=== PATIENT | male | born 1965 | race Caucasian/White ===

== ENCOUNTER 2017-05-18 04:13 | Observation (INO) | payer BC ==
[~2017-05-18] VITALS: Ht 167.6 cm; Wt 72.8 kg
[2017-05-18] VITALS (31 sets, daily range): BP systolic 116–229; BP diastolic 73–123; PULSE 62–78; RESP 9–18; TEMP 97.8–98.5; O2SAT 95–100
[~2017-05-18 04:13] MED LIST: AMLO10 PO; CLON0.2T PO; LISI10TA PO; MOBI15TA PO; ROBA750T PO
[2017-05-18] MEDS ORDERED: ONDANSETRON HCL 4 MG/2 ML VIAL IVP ONE (05:00)
[2017-05-18] MEDS ORDERED: SODIUM CHLOR 0.9% 1000 ML INJ 1,000 ML IV SCH (05:00)
[2017-05-18] MEDS ORDERED: HYDROmorphone HCL PF 0.5 MG/0.5 ML SYRINGE IV PUSH ONE (05:00)
[2017-05-18] MEDS ORDERED: SODIUM CHLORIDE 0.9% FLUSH 10 ML FLUSH IV FLUSH PRN (05:00)
[2017-05-18] MEDS: NITROGLYCERIN 0.4 MG SL 25 TABS/BTL SL PRN ×3 (05:05→05:15)
--- NOTE | 2017-05-18 05:08 | PD ---
HPI Chief Complaint: GI Complaint Time Seen by Provider: 05:00 Travel History International Travel<30 days: No Contact w/Intl Traveler<30days: No Traveled to known affect area: No History of Present Illness HPI 52-year-old male presents to the emergency department for complaint of elevated blood pressure and 7/10 pain to the left upper quadrant and epigastric region 4 days. Symptoms are worsened over the last several hours. Patient states that he has been missing some of his blood pressure medication which includes clonidine. Patient's had nausea without vomiting. Patient denies any referred neck jaw back shoulder arm pain. Patient does smoke cigarettes. Patient is not diabetic. Patient denies chest pain. Patient is unable to identify exacerbating or alleviating factors. PFSH Past Medical History Narrative Medical Anemia gouty arthritis PVCs hypertension dyslipidemia ulcer cellulitis with skin grafts tobacco use alcohol use; nursing notes reviewed Anemia: Yes Arthritis: Yes Asthma: No Blood Disorders: No Heart Rhythm Problems: Yes (hx of PVC's and increased heart rate) Cancer: No Cardiovascular Problems: Yes High Cholesterol: Yes Congestive Heart Failure: No COPD: No Diabetes: No Diminished Hearing: No Endocrine: No Gastrointestinal Disorders: No GERD: No Gout: Yes Genitourinary: No Headaches: No Hiatal Hernia: No Hypertension: Yes Immune Disorder: No Implanted Vascular Access Dvce: No Kidney Stones: No Musculoskeletal: Yes (FX LEFT SHOULDER 1.5 YRS AGO, infection in lleg ) Neurologic: No Psychiatric: No Reproductive: No Respiratory: No Migraines: No Renal Failure: No Seizures: No Sleep Apnea: No Thyroid Disease: No Ulcer: Yes ?: Not Past Surgical History Abdominal Surgery: No Cardiac Surgery: No Ear Surgery: No Eye Surgery: No Genitourinary Surgery: No Oral Surgery: No Thoracic Surgery: No Other Surgery: Yes (SKIN GRAFTS r/t FITZGERALD 2nd and 3rd degree to left arm and back) Social History Alcohol Use: Yes (3 beers daily) Tobacco Use: Yes (1 PPD) Substance Use: No Allergies-Medications (Allergen,Severity, Reaction): Coded Allergies: No Known Allergies (Verified Adverse Reaction, Unknown, 05/18/17) Reported Meds & Prescriptions Reported Meds & Active Scripts Active Reported Lisinopril-Hctz 10-12.5 Mg Tab 2 Tab PO DAILY Norvasc (Amlodipine Besylate) 10 Mg Tab 10 Mg PO DAILY Clonidine (Clonidine HCl) Unknown Strength Tab Unknown Dose PO DAILY Review of Systems Except as stated in HPI: all other systems reviewed are Neg General / Constitutional: No: Fever, Chills Eyes: No: Visual changes HENT: No: Headaches, Neck Pain Cardiovascular: No: Chest Pain or Discomfort Respiratory: No: Shortness of Breath Gastrointestinal: Positive: Nausea, Abdominal Pain, No: Vomiting, Diarrhea Genitourinary: No: Flank Pain Musculoskeletal: No: Myalgias, Arthralgias Skin: No Rash Neurologic: No: Weakness Psychiatric: No: Anxiety Hematologic/Lymphatic: No: Easy Bruising Physical Exam Narrative GENERAL: Well-developed well-nourished male in no acute distress no respiratory distress SKIN: Warm and dry. HEAD: Normocephalic. EYES: No scleral icterus. No injection or drainage. NECK: Supple, trachea midline. No JVD or lymphadenopathy. CARDIOVASCULAR: Regular rate and rhythm without murmurs, gallops, or rubs. RESPIRATORY: Breath sounds equal bilaterally. No accessory muscle use. GASTROINTESTINAL: Abdomen soft, non-tender, nondistended. No palpable pulsatile mass. MUSCULOSKELETAL: No cyanosis, or edema. BACK: Nontender without obvious deformity. No CVA tenderness. Data Data Last Documented VS Vital Signs Date Time Temp Pulse Resp B/P (MAP) Pulse Ox O2 Delivery O2 Flow Rate FiO2 05/18/17 07:29 67 16 173/94 (120) 100 Nasal Cannula 2.00 05/18/17 04:20 97.8 Orders Orders Electrocardiogram (05/18/17 ) Complete Blood Count With Diff (05/18/17 05:00) Comprehensive Metabolic Panel (05/18/17 05:00) Lipase (05/18/17 05:00) Prothrombin Time / Inr (Pt) (05/18/17 05:00) Act Partial Throm Time (Ptt) (05/18/17 05:00) Urinalysis - C+S If Indicated (05/18/17 05:00) Ct Abd/Pel W Iv Contrast(Rout) (05/18/17 05:00) Iv Access Insert/Monitor (05/18/17 05:00) Ecg Monitoring (05/18/17 05:00) Oximetry (05/18/17 05:00) Ondansetron Inj (Zofran Inj) (05/18/17 05:00) Sodium Chloride 0.9% Flush (Ns Flush) (05/18/17 05:00) Electrocardiogram (05/18/17 05:00) Chest, Single Ap (05/18/17 05:00) Troponin I (05/18/17 05:00) Ckmb (Isoenzyme) Profile (05/18/17 05:00) Nitroglycerin Sl (Nitrostat Sl) (05/18/17 05:00) Hydromorphone Pf Inj (Dilaudid Pf Inj) (05/18/17 05:00) Sodium Chlor 0.9% 1000 Ml Inj (Ns 1000 M (05/18/17 05:00) Type And Screen (05/18/17 05:00) Alcohol (Ethanol) (05/18/17 05:00) Magnesium (Mg) (05/18/17 05:00) Aspirin Chew (Aspirin Chew) (05/18/17 05:30) Aspirin Chew (Aspirin Chew) (05/18/17 05:20) CKMB (05/18/17 05:00) CKMB% (05/18/17 05:00) Iohexol 350 Inj (Omnipaque 350 Inj) (05/18/17 06:15) Nitroglycerin 2% Oint (Nitroglycerin 2% (05/18/17 06:45) Labetalol Inj (Trandate Inj) (05/18/17 07:00) Labetalol Inj (Trandate Inj) (05/18/17 07:00) Hydromorphone Pf Inj (Dilaudid Pf Inj) (05/18/17 07:15) Admit Order (Ed Use Only) (05/18/17 ) Vital Signs (Adult) Q4H (05/18/17 07:33) Diet Npo (05/18/17 Breakfast) Activity Bed Rest (05/18/17 07:33) Notify Dr: Other (05/18/17 07:33) Labs Laboratory Tests Test 05/18/17 05:00 05/18/17 07:30 White Blood Count 8.7 TH/MM3 Red Blood Count 4.72 MIL/MM3 Hemoglobin 14.7 GM/DL Hematocrit 44.5 % Mean Corpuscular Volume 94.2 FL Mean Corpuscular Hemoglobin 31.1 PG Mean Corpuscular Hemoglobin Concent 33.0 % Red Cell Distribution Width 12.7 % Platelet Count 289 TH/MM3 Mean Platelet Volume 9.8 FL Neutrophils (%) (Auto) 55.5 % Lymphocytes (%) (Auto) 29.8 % Monocytes (%) (Auto) 8.2 % Eosinophils (%) (Auto) 3.0 % Basophils (%) (Auto) 3.5 % Neutrophils # (Auto) 4.8 TH/MM3 Lymphocytes # (Auto) 2.6 TH/MM3 Monocytes # (Auto) 0.7 TH/MM3 Eosinophils # (Auto) 0.3 TH/MM3 Basophils # (Auto) 0.3 TH/MM3 CBC Comment DIFF FINAL Differential Comment Prothrombin Time 11.3 SEC Prothromb Time International Ratio 1.0 RATIO Activated Partial Thromboplast Time 28.5 SEC Blood Urea Nitrogen 15 MG/DL Creatinine 1.10 MG/DL Random Glucose 95 MG/DL Total Protein 7.9 GM/DL Albumin 4.0 GM/DL Calcium Level 8.4 MG/DL Magnesium Level 2.4 MG/DL Alkaline Phosphatase 96 U/L Aspartate Amino Transf (AST/SGOT) 22 U/L Alanine Aminotransferase (ALT/SGPT) 37 U/L Total Bilirubin 0.6 MG/DL Sodium Level 134 MEQ/L Potassium Level 3.4 MEQ/L Chloride Level 98 MEQ/L Carbon Dioxide Level 27.8 MEQ/L Anion Gap 8 MEQ/L Estimat Glomerular Filtration Rate 70 ML/MIN Total Creatine Kinase 107 U/L Creatine Kinase MB 1.7 NG/ML Troponin I LESS THAN 0.02 NG/ML Lipase 77 U/L Ethyl Alcohol Level LESS THAN 3 MG/DL MDM Medical Decision Making Medical Screen Exam Complete: Yes Emergency Medical Condition: Yes Medical Record Reviewed: Yes Interpretation(s) EKG normal sinus rhythm rate [address] elevation or injury pattern or ectopy noted Last Impressions Chest X-Ray 05/18/17 0500 Signed Impressions: Service Date/Time: Thursday, May 18, 2017 05:29 - CONCLUSION: 1. No acute cardiopulmonary disease. Lane Montiel MD Abdomen/Pelvis CT 05/18/17 0500 Signed Impressions: Service Date/Time: Thursday, May 18, 2017 06:08 - CONCLUSION: 1. No evidence of acute abdominal or pelvic process. No masses are identified. 2. Constipation Lane Montiel MD CBC & BMP Diagram 05/18/17 05:00 Total Protein 7.9, Albumin 4.0, Calcium Level 8.4 L, Magnesium Level 2.4, Alkaline Phosphatase 96, Aspartate Amino Transf (AST/SGOT) 22, Alanine Aminotransferase (ALT/SGPT) 37, Total Bilirubin 0.6 Vital Signs Date Time Temp Pulse Resp B/P (MAP) Pulse Ox O2 Delivery O2 Flow Rate FiO2 05/18/17 05:41 75 16 165/95 (118) 97 Nasal Cannula 2.00 05/18/17 05:35 74 178/106 (130) 05/18/17 05:30 75 192/104 (133) 05/18/17 05:20 72 165/95 (118) 05/18/17 05:15 74 172/102 (125) 05/18/17 05:10 74 180/102 (128) 05/18/17 05:05 77 207/117 (147) 05/18/17 04:45 78 229/110 (149) 05/18/17 04:25 78 16 229/110 (149) 99 05/18/17 04:20 97.8 71 18 227/123 (157) 99 troponin I: less than 0.02, not elevated; CK: 107, not elevated Differential Diagnosis Abdominal pain gastritis pancreatitis biliary colic atypical chest pain ACS myocardial infarction aortic dissection abdominal aortic aneurysm hypertensive urgency hypertensive crisis Narrative Course Patient placed on campus monitor with continuous pulse oximetry IV access obtained specimens collected and sent for resulting patient administered sublingual nitroglycerin times one for 7/10 epigastric pain to repeat every every 5 minutes 2 also administered aspirin 162 mg and EKG ordered to be performed @ 0730 173/94 after NTG, labetalol, dilaudid; patient with decreased pain and improving BP. Patient discussed with and admitted to [facility] service for ongoing BP management to ICU Physician Communication Physician Communication discussed with Dr Oropeza for [facility] --->admit to ICU Diagnosis Primary Impression: Uncontrolled hypertension Additional Impression: Abdominal pain of unknown etiology Admitting Information Admitting Physician Requests: Admit Lora Patel MD May 18, 2017 05:08
[2017-05-18 05:20] LABS: AUTOMATED NEUTROPHIL # 4.8 TH/MM3 (1.8-7.7); BASOPHIL # 0.3 TH/MM3 (0-0.2); BASOPHIL % 3.5 % (0.0-2.0); EOSINOPHIL # 0.3 TH/MM3 (0-0.4); HEMATOCRIT 44.5 % (39.0-51.0); HEMO FLAGS DIFF FINAL; LYMPH % 29.8 % (9.0-44.0); LYMPHOCYTE # 2.6 TH/MM3 (1.0-4.8); MEAN CELL VOLUME 94.2 FL (80.0-100.0); MEAN CORPUSCULAR HEMOGLOBIN 31.1 PG (27.0-34.0); MONO % 8.2 % (0.0-8.0); NEUT % 55.5 % (16.0-70.0); PLATELET COUNT 289 TH/MM3 (150-450); RED BLOOD COUNT 4.72 MIL/MM3 (4.50-5.90); RED CELL DISTRIBUTION WIDTH 12.7 % (11.6-17.2); WHITE BLOOD COUNT 8.7 TH/MM3 (4.0-11.0)
[2017-05-18] MEDS ORDERED: ASPIRIN 81 MG CHEW TAB ONE (05:20)
[2017-05-18 05:26] LABS: CHLORIDE 98 MEQ/L (98-107); POTASSIUM 3.4 MEQ/L (3.5-5.1); SODIUM (NA) 134 MEQ/L (136-145)
[2017-05-18 05:30] LABS: ANION GAP 8 MEQ/L (5-15); APTT (PATIENT) 28.5 SEC (24.3-30.1); BICARBONATE 27.8 MEQ/L (21.0-32.0); BLOOD UREA NITROGEN 15 MG/DL (7-18); MAGNESIUM 2.4 MG/DL (1.5-2.5); PROTHROMBIN TIME - PATIENT 11.3 SEC (9.8-11.6)
[2017-05-18] MEDS ORDERED: ASPIRIN 81 MG CHEW TAB CHEW ONE (05:30)
[2017-05-18 05:33] LABS: ALT (GPT) 37 U/L (12-78); AST (GOT) 22 U/L (15-37); GLOMERULAR FILTRATION RATE 70 ML/MIN (>89)
[2017-05-18 05:34] LABS: TOTAL BILIRUBIN ADULT 0.6 MG/DL (0.2-1.0)
[2017-05-18 05:36] LABS: ALKALINE PHOSPHATASE 96 U/L (45-117); CREATINE KINASE 107 U/L (39-308)
[2017-05-18 05:43] LABS: ALCOHOL LESS THAN 3 MG/DL (0-5)
[2017-05-18 05:59] LABS: CKMB 1.7 NG/ML (0.5-3.6)
[2017-05-18] MEDS ORDERED: IOHEXOL 350 MG/ML 10 ML VIAL (for RAD DIAG) IVCONTRAST ONE (06:15)
--- NOTE | 2017-05-18 06:27 | RADRPT ---
EXAM DATE/TIME: 05/18/2017 05:29 [facility] COMPARISON: No previous studies available for comparison. INDICATIONS : Chest pain. Syncope. MEDICAL HISTORY : None. SURGICAL HISTORY : None. ENCOUNTER: Initial ACUITY: 1 day PAIN SCORE: 0/10 LOCATION: Bilateral chest FINDINGS: A single view of the chest demonstrates the lungs to be symmetrically aerated without evidence of mas s, infiltrate or effusion. The cardiomediastinal contours are unremarkable. Osseous structures are intact. CONCLUSION: 1. No acute cardiopulmonary disease. Lane Montiel MD on May 18, 2017 at 6:25 Board Certified Radiologist. This report was verified electronically.
--- NOTE | 2017-05-18 06:31 | RADRPT ---
EXAM DATE/TIME: 05/18/2017 06:08 [facility] COMPARISON: MRI ABDOMEN W & W/O CONTRAST, June 12, 2016, 12:14. CT ABDOMEN & PELVIS W CONTRAST, June 11, 2016, 4:50. INDICATIONS : Left upper quadrant pain. IV CONTRAST: 85 cc Omnipaque 350 (iohexol) IV ORAL CONTRAST: No oral contrast ingested. RADIATION DOSE: 9.27 CTDIvol (mGy) MEDICAL HISTORY : Hypertension. Cardiovascular disease Liver lesions. SURGICAL HISTORY : None. ENCOUNTER: Initial ACUITY: 4 - 6 days PAIN SCALE: 4/10 LOCATION: Left upper quadrant TECHNIQUE: Volumetric scanning of the abdomen and pelvis was performed. Using automated exposure control and ad justment of the mA and/or kV according to patient size, radiation dose was kept as low as reasonably achievable to obtain optimal diagnostic quality images. DICOM format image data is available electro nically for review and comparison. FINDINGS: There is subsegmental atelectasis in the both bases. The liver and spleen are free of focal defects with the exception of a 10 mm hemangioma in the right lobe. The gallbladder and pancreas demonstrate no abnormality. The adrenal glands are normal. The kidneys demonstrate no evidence of solid renal mas s or hydronephrosis. No free fluid or abdominal masses are identified. No para-aortic adenopathy is s een. Examination of the pelvis demonstrates no evidence of free fluid or pelvic mass. No abnormally enlarg ed inguinal or retroperitoneal lymph nodes are present. The bladder is unremarkable. There is a moder ate amount of fecal material throughout the colon. CONCLUSION: 1. No evidence of acute abdominal or pelvic process. No masses are identified. 2. Constipation Lane Montiel MD on May 18, 2017 at 6:26 Board Certified Radiologist. This report was verified electronically.
[2017-05-18] MEDS ORDERED: LABETALOL HCL 100 MG/20 ML VIAL IV PUSH ONE ×3 (06:45→07:00)
[2017-05-18] MEDS ORDERED: NITROGLYCERIN 2% OINT 1 GM PACKET TOPICAL ONE (06:45)
[2017-05-18] MEDS ORDERED: HYDROmorphone HCL PF 1 MG/ML VIAL IV PUSH ONE (07:15)
[2017-05-18 07:35] LABS: BLOOD, URINE NEG (NEG); GLUCOSE,URINE NEG (NEG); KETONE, URINE NEG (NEG); NITRITE,URINE NEG (NEG); PH, URINE 6.5 (5.0-8.5)
[2017-05-18 07:41] LABS: METHOD OF COLLECTION CLEAN CATCH; URINE COLOR YELLOW (YELLW/STRAW)
[2017-05-18 07:42] LABS: COMMENT (UR) CULT NOT INDICATED; CULTURE IF INDICATED CULT NOT INDICATED; RBC, URINE 0-3 /hpf (0-3); SQUAMOUS EPITHELIAL CELL URINE 0-5 /hpf (0-5)
[2017-05-18] MEDS ORDERED: NIFEdipine 10 MG CAP PO SCH (08:15)
[2017-05-18] MEDS ORDERED: ASPIRIN 81 MG CHEW TAB CHEW SCH (09:00)
[2017-05-18] MEDS ORDERED: POLYETHYLENE GLYCOL 17 GM PKG PO SCH (10:00)
[2017-05-18] MEDS ORDERED: SOD PHOSPHATE/SOD BIPHOSPHATE (ADULT) ENEMA 133ML RECTAL ONE (10:00)
[2017-05-18] MEDS ORDERED: PROMETHAZINE INJ 25 MG/ML VIAL IM ONE (10:00)
[2017-05-18] MEDS ORDERED: NIFEdipine 10 MG CAP PO ONE (10:30)
[2017-05-18] MEDS ORDERED: MINERAL OIL LIQUID 30 ML CUP PO ONE (10:30)
[2017-05-18] MEDS ORDERED: FAMOTIDINE 20 MG/2 ML VIAL IV PUSH SCH (11:00)
--- NOTE | 2017-05-18 11:10 | HHI.HP ---
[facility] Israel Ni[facility], DO Admission Diagnosis uncontrolled HTN, abdominal pain Diagnoses: Chief Complaint: abd pain Travel History International Travel<30 Days: No Contact w/Intl Traveler <30 Da: No Traveled to Known Affected Are: No History of Present Illness 52-year-old white male being admitted for hypertensive emergency Patient was in his usual state of health until about 2 nights ago when he was on the job began experiencing a sudden onset of abdominal pain that was stabbing mainly located on his right side. This is associated with feeling a little lightheaded, dizzy, nauseated and mild chest tightness. Denies any vomiting. 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 The pain subsided as he went off the shift and recurred again when he went on the shift in next night to a higher intensity up to a 8/ 10. He took some Aleve to no avail. He reports being noncompliant with his medications of hypertension, says he just forgets. States that now all the symptoms except for his abdominal pain have resolved. Review of Systems Except as stated in HPI: all other systems reviewed are Neg Past Family Social History Past Medical History Anemia, doubt arthritis, hypertension, hyperlipidemia, cellulitis Past Surgical History Left shoulder surgery Allergies: Coded Allergies: No Known Allergies (Verified Allergy, Unknown, 05/18/17) Family History None per patient Social History Pack per day for over 20 years, does drink 3 beers daily Physical Exam Vital Signs Vital Signs Date Time Temp Pulse Resp B/P (MAP) Pulse Ox O2 Delivery O2 Flow Rate FiO2 05/18/17 10:00 70 12 150/89 (109) 05/18/17 10:00 98.5 70 12 150/89 (109) 05/18/17 09:30 70 11 159/96 (117) 95 05/18/17 09:00 69 05/18/17 09:00 98.0 05/18/17 09:00 69 156/97 (116) 05/18/17 08:55 05/18/17 08:22 67 16 135/85 (102) 97 Room Air 05/18/17 07:52 66 16 154/95 (114) 97 Room Air 05/18/17 07:40 16 97 Room Air 05/18/17 07:34 16 05/18/17 07:32 66 16 174/95 (121) 100 Nasal Cannula 2.00 05/18/17 07:30 16 05/18/17 07:29 67 16 173/94 (120) 100 Nasal Cannula 2.00 05/18/17 07:18 67 16 179/104 (129) 100 Nasal Cannula 2.00 05/18/17 07:10 77 16 206/113 (144) 100 Room Air 05/18/17 06:54 69 18 184/103 (130) 05/18/17 06:50 73 18 152/108 (123) 100 Nasal Cannula 2.00 05/18/17 06:41 78 16 165/104 (124) 98 Nasal Cannula 2.00 05/18/17 05:41 75 16 165/95 (118) 97 Nasal Cannula 2.00 05/18/17 05:35 74 178/106 (130) 05/18/17 05:30 75 192/104 (133) 05/18/17 05:20 72 165/95 (118) 05/18/17 05:15 74 172/102 (125) 05/18/17 05:10 74 180/102 (128) 05/18/17 05:05 77 207/117 (147) 05/18/17 04:45 78 229/110 (149) 05/18/17 04:25 78 16 229/110 (149) 99 05/18/17 04:20 97.8 71 18 227/123 (157) 99 Physical Exam VS: Afebrile GENERAL: Well-nourished middle-aged white male, no acute distress, awake SKIN: Warm and dry. EYES: Pupils equal and round. No scleral icterus. No injection or drainage. ENT: No nasal bleeding or discharge. Mucous membranes pink and moist. CARDIOVASCULAR: Regular rate and rhythm. no murmurs RESPIRATORY: No accessory muscle use. Clear to auscultation. Breath sounds equal bilaterally. GASTROINTESTINAL: Abdomen soft, has tenderness appreciated on deep palpation looking underneath the right subcostal margins, also on the left but to a lesser extent, mild discomfort on very deep palpation to remaining abdominal quadrants, decreased bowel sounds Extremities: No clubbing, cyanosis, or edema. No obvious deformities. MUSCULOSKELETAL: Extremities without clubbing, cyanosis, or edema. No obvious deformities. grossly intact ROM with 5/5 strength in upper and lower extremities proximally NEUROLOGICAL: Awake and alert. No obvious cranial nerve deficits. No facial droop nor slurred speech noted. PSYCHIATRIC: Appropriate mood and affect; insight and judgment normal. Laboratory Laboratory Tests Test 05/18/17 05:00 05/18/17 07:30 05/18/17 08:13 White Blood Count 8.7 Red Blood Count 4.72 Hemoglobin 14.7 Hematocrit 44.5 Mean Corpuscular Volume 94.2 Mean Corpuscular Hemoglobin 31.1 Mean Corpuscular Hemoglobin Concent 33.0 Red Cell Distribution Width 12.7 Platelet Count 289 Mean Platelet Volume 9.8 Neutrophils (%) (Auto) 55.5 Lymphocytes (%) (Auto) 29.8 Monocytes (%) (Auto) 8.2 Eosinophils (%) (Auto) 3.0 Basophils (%) (Auto) 3.5 Neutrophils # (Auto) 4.8 Lymphocytes # (Auto) 2.6 Monocytes # (Auto) 0.7 Eosinophils # (Auto) 0.3 Basophils # (Auto) 0.3 CBC Comment DIFF FINAL Differential Comment Prothrombin Time 11.3 Prothromb Time International Ratio 1.0 Activated Partial Thromboplast Time 28.5 Blood Urea Nitrogen 15 Creatinine 1.10 Random Glucose 95 Total Protein 7.9 Albumin 4.0 Calcium Level 8.4 Magnesium Level 2.4 Alkaline Phosphatase 96 Aspartate Amino Transf (AST/SGOT) 22 Alanine Aminotransferase (ALT/SGPT) 37 Total Bilirubin 0.6 Sodium Level 134 Potassium Level 3.4 Chloride Level 98 Carbon Dioxide Level 27.8 Anion Gap 8 Estimat Glomerular Filtration Rate 70 Total Creatine Kinase 107 Creatine Kinase MB 1.7 Troponin I LESS THAN 0.02 Lipase 77 Ethyl Alcohol Level LESS THAN 3 Urine Collection Type CLEAN CATCH Urine Color YELLOW Urine Turbidity CLEAR Urine pH 6.5 Urine Specific [place] 1.027 Urine Protein NEG Urine Glucose (UA) NEG Urine Ketones NEG Urine Occult Blood NEG Urine Nitrite NEG Urine Bilirubin NEG Urine Leukocyte Esterase NEG Urine RBC 0-3 Urine Squamous Epithelial Cells 0-5 Microscopic Urinalysis Comment CULT NOT INDICATED Urine Collection Time 07:30 Urine Opiates Screen NEG Urine Barbiturates Screen NEG Urine Amphetamines Screen NEG Urine Benzodiazepines Screen NEG Urine Cocaine Screen NEG Urine Cannabinoids Screen NEG Result Diagram: 05/18/17 05005/18/17 050 Imaging Last Impressions Chest X-Ray 05/18/17499 Signed Impressions: Service Date/Time: Thursday, May 18, 2017 05:29 - CONCLUSION: 1. No acute cardiopulmonary disease. Lane Montiel MD Abdomen/Pelvis CT 05/18/17 050 Signed Impressions: Service Date/Time: Thursday, May 18, 2017 06:08 - CONCLUSION: 1. No evidence of acute abdominal or pelvic process. No masses are identified. 2. Constipation Lane Montiel MD [place] VTE Risk Assessment Caprini VTE Risk Assessment: No/Low Risk (score <= 1) Caprini Risk Assessment Model Point Value = 1 Point Value = 2 Point Value = 3 Point Value = 5 Age 41-60 Minor surgery BMI > 25 kg/m2 Swollen legs Varicose veins or History of unexplained or recurrent spontaneous Oral contraceptives or hormone replacement Sepsis (< 1 month) Serious lung disease, including pneumonia (< 1 month) Abnormal pulmonary function Acute myocardial infarction Congestive heart failure (< 1 month) History of inflammatory bowel disease Medical patient at bed rest Age 61-74 Arthroscopic surgery Major open surgery (> 45 min) Laparoscopic surgery (> 45 min) Malignancy Confined to bed (> 72 hours) Immobilizing plaster cast Central venous access Age >= 75 History of VTE Family history of VTE Factor V Leiden Prothrombin [id number] Lupus anticoagulant Anticardiolipin antibodies Elevated serum homocysteine Heparin-induced thrombocytopenia Other congenital or acquired thrombophilia Stroke (< 1 month) Elective arthroplasty Hip, pelvis, or leg fracture Acute spinal cord injury (< 1 month) Prophylaxis Regimen Total Risk Factor Score Risk Level Prophylaxis Regimen 0-1 Low Early ambulation 2 Moderate Order ONE of the following: *Sequential Compression Device (SCD) *Heparin 5000 units SQ BID 3-4 Higher Order ONE of the following medications: *Heparin 5000 units SQ TID *Enoxaparin/Lovenox 40 mg SQ daily (WT < 150 kg, CrCl > 30 mL/min) *Enoxaparin/Lovenox 30 mg SQ daily (WT < 150 kg, CrCl > 10-29 mL/min) *Enoxaparin/Lovenox 30 mg SQ BID (WT < 150 kg, CrCl > 30 mL/min) AND/OR *Sequential Compression Device (SCD) 5 or more Highest Order ONE of the following medications: *Heparin 5000 units SQ TID (Preferred with Epidurals) *Enoxaparin/Lovenox 40 mg SQ daily (WT < 150 kg, CrCl > 30 mL/min) *Enoxaparin/Lovenox 30 mg SQ daily (WT < 150 kg, CrCl > 10-29 mL/min) *Enoxaparin/Lovenox 30 mg SQ BID (WT < 150 kg, CrCl > 30 mL/min) AND *Sequential Compression Device (SCD) Assessment and Plan Assessment and Plan Hypertensive emergency - admitting to ICU - Significantly improved since emergency room treatment, continue low-dose nifedipine and monitor blood pressure frequently - PRESS FEEDER symptoms have resolved - no need for drip at this time, urine drug screen ordered - Independently reviewed EKG shows sinus rhythm Abdominal pain - Possibly pleurisy versus constipation versus both - We'll give Toradol for pain while giving enemas to help relieve the constipation - miralax, mineral oil, phenergan for nausea - pepcid w/ po protonix - My independent review of the CT scan shows significant constipation diffusely Addendum: Patient's blood pressure had normalized and his symptoms of chest tightness nausea and arm tingling as well as lightheadedness completely resolved. He had been giving an enema with a resulting bowel movement that resulted in resolution of his abdominal pain. Nursing ambulate with him around the nursing station with no recurrence of his symptoms including chest pain. Patient has met maximal benefit from observation care and is clinically stable for discharge. Patient was counseled that we would be modifying his home hypertension regimen and that he would need to follow up with his primary care provider for ultimate fine-tuning of his BP meds. Chuckie Han MD May 18, 2017 11:10
[2017-05-18] MEDS ORDERED: PANTOPRAZOLE SOD 40 MG DELAYED RELEASE TAB PO SCH (12:00)
--- NOTE | 2017-05-18 12:56 | EKG ---
Date Performed: 05/18/2017 Time Performed: 05:20:50 PTAGE: 52 years EKG: Sinus rhythm NORMAL ECG PREVIOUS TRACING : 06/13/2016 04.16 Since previous tracing, no significant change. DOCTOR: Chang Briggs Interpretating Date/Time 05/18/2017 12:54:13
[2017-05-18] MEDS ORDERED: NIFEdipine 20 MG CAP PO SCH (14:00)
[2017-05-18] MEDS ORDERED: NIFE60TA58 PO (17:18)
--- NOTE | 2017-05-18 17:21 | HHI.DCPOC ---
Discharge Care Plan Diagnosis: (1) Constipation (2) Hypertensive emergency (3) Smoking greater than 10 pack years Additional Problems STOP SMOKING - it makes your hypertension worse! Goals to Promote Your Health * To prevent worsening of your condition and complications * To maintain your health at the optimal level Directions to Meet Your Goals Take your medications as prescribed Follow your dietary instruction Follow activity as directed Keep your appointments as scheduled Take your immunizations and boosters as scheduled If your symptoms worsen call your PCP, if no PCP go to Urgent Care Center or Emergency Room Smoking is Dangerous to Your Health. Avoid second hand smoke Call the 24-hour hour crisis hotline for domestic abuse at Chuckie Han MD May 18, 2017 17:21
[2017-05-18] MEDS ORDERED: MIRA3350 PO (17:22)
== END 2017-05-18 18:43 | disposition home or self-care (01) ==
LOC: PHED 04:13 → PHEDA 07:35 → INTOOBSV 07:35 → PHICU 09:04
PROVIDERS: ADMIT Hospitalist; ATTEND Hospitalist
DX: I16.1 Hypertensive emergency (principal); R10.12 Left upper quadrant pain; K59.00 Constipation, unspecified; R11.0 Nausea; R42 Dizziness and giddiness; R07.9 Chest pain, unspecified; R55 Syncope and collapse; I10 Essential (primary) hypertension; E78.00 Pure hypercholesterolemia, unspecified; M19.90 Unspecified osteoarthritis, unspecified site; F17.210 Nicotine dependence, cigarettes, uncomplicated; Z91.14 Patient's other noncompliance with medication regimen; Z79.899 Other long term (current) drug therapy
CPT/HCPCS: 71010; 74177; 80053; 80307; 81001; 82550; 82552; 83690; 83735; 84484; 85025; 85610; 85730; 86850; 86900; 86901; 93005; 96374; 96375; 99285; G0378; J1170; J2405; J2550; J7030; Q9967

== ENCOUNTER 2017-08-18 18:48 | Observation (INO) | payer SELFPAY ==
[~2017-08-18] VITALS: Ht 167.6 cm; Wt 72.5 kg
[~2017-08-18 18:48] MED LIST changes: -AMLO10 PO; -CLON0.2T PO; -LISI10TA PO; +MIRA3350 PO; -MOBI15TA PO; +NIFE60TA58 PO; -ROBA750T PO
[2017-08-18 19:08] VITALS: BP 123/66; PULSE 78; RESP 14; TEMP 98.5; O2SAT 97
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
[2017-08-18] MEDS ORDERED: SODIUM CHLORIDE 0.9% FLUSH 10 ML FLUSH IVF PRN (21:15)
[2017-08-18 21:36] LABS: BILIRUBIN, URINE NEG (NEG); BLOOD, URINE NEG (NEG); GLUCOSE,URINE NEG (NEG); KETONE, URINE NEG (NEG); NITRITE,URINE NEG (NEG); URINE LEUKOCYTE ESTERASE NEG (NEG)
[2017-08-18 21:44] LABS: CHLORIDE 99 MEQ/L (98-107); SODIUM (NA) 133 MEQ/L (136-145)
[2017-08-18 21:45] LABS: AUTOMATED NEUTROPHIL # 5.1 TH/MM3 (1.8-7.7); BASOPHIL # 0.2 TH/MM3 (0-0.2); BASOPHIL % 2.8 % (0.0-2.0); EOSINOPHIL # 0.3 TH/MM3 (0-0.4); EOSINOPHIL % 3.1 % (0.0-4.0); HEMATOCRIT 38.7 % (39.0-51.0); HEMOGLOBIN 13.4 GM/DL (13.0-17.0); LYMPH % 25.3 % (9.0-44.0); LYMPHOCYTE # 2.1 TH/MM3 (1.0-4.8); MEAN CORPUSCULAR HEMOGLOBIN 33.3 PG (27.0-34.0); MEAN CORPUSCULAR HGB CONC 34.6 % (32.0-36.0); MONO % 7.3 % (0.0-8.0); MONOCYTE # 0.6 TH/MM3 (0-0.9); NEUT % 61.5 % (16.0-70.0); PLATELET COUNT 267 TH/MM3 (150-450); RED BLOOD COUNT 4.03 MIL/MM3 (4.50-5.90); WHITE BLOOD COUNT 8.3 TH/MM3 (4.0-11.0)
[2017-08-18 21:47] LABS: CALCIUM 8.4 MG/DL (8.5-10.1)
[2017-08-18 21:48] LABS: ALBUMIN 3.2 GM/DL (3.4-5.0); BICARBONATE 28.1 MEQ/L (21.0-32.0); BLOOD UREA NITROGEN 9 MG/DL (7-18); GLUCOSE,RANDOM 89 MG/DL (74-106)
[2017-08-18 21:49] LABS: INTERNATIONAL NORMALIZED RATIO 1.1 RATIO; PROTHROMBIN TIME - PATIENT 11.1 SEC (9.8-11.6)
[2017-08-18 21:50] LABS: URINE COLOR YELLOW (YELLW/STRAW)
[2017-08-18 21:51] LABS: SQUAMOUS EPITHELIAL CELL URINE 0-5 /hpf (0-5)
[2017-08-18 21:51] LABS: ALT (GPT) 53 U/L (12-78); AST (GOT) 41 U/L (15-37); CREATININE 0.82 MG/DL (0.60-1.30); GLOMERULAR FILTRATION RATE 98 ML/MIN (>89)
[2017-08-18 21:52] LABS: TOTAL BILIRUBIN ADULT 0.2 MG/DL (0.2-1.0)
[2017-08-18 21:54] LABS: ALKALINE PHOSPHATASE 96 U/L (45-117)
--- NOTE | 2017-08-18 21:54 | RADRPT ---
EXAM DATE/TIME: 08/18/2017 21:36 [facility] COMPARISON: No previous studies available for comparison. INDICATIONS : Left facial numbness. Evaluate for cerebrovascular injury. RADIATION DOSE: 60.39 CTDIvol (mGy) MEDICAL HISTORY : Cardiovascular disease. SURGICAL HISTORY : None. ENCOUNTER: Initial ACUITY: 2 days PAIN SCALE: 2/10 LOCATION: Left facial TECHNIQUE: Multiple contiguous axial images were obtained of the head. Using automated exposure control and adj ustment of the mA and/or kV according to patient size, radiation dose was kept as low as reasonably a chievable to obtain optimal diagnostic quality images. DICOM format image data is available electro nically for review and comparison. FINDINGS: CEREBRUM: The ventricles are normal for age. No evidence of midline shift, mass lesion, hemorrhage or acute in farction. No extra-axial fluid collections are seen. POSTERIOR FOSSA: The cerebellum and brainstem are intact. The 4th ventricle is midline. The cerebellopontine angle i s unremarkable. EXTRACRANIAL: The visualized portion of the orbits is intact. SKULL: The calvaria is intact. No evidence of skull fracture. CONCLUSION: 1. No acute intracranial abnormalities. Pieter Foreman MD on August 18, 2017 at 21:50 Board Certified Radiologist. This report was verified electronically.
[2017-08-18 21:56] LABS: TROPONIN I LESS THAN 0.02 NG/ML (0.02-0.05)
--- NOTE | 2017-08-18 22:01 | RADRPT ---
EXAM DATE/TIME: 08/18/2017 21:14 [facility] COMPARISON: CHEST SINGLE AP, May 18, 2017, 5:29. INDICATIONS : Left side face is numb. MEDICAL HISTORY : Hypertension. Cardiovascular disease Liver lesions SURGICAL HISTORY : None. ENCOUNTER: Initial ACUITY: 1 day PAIN SCORE: 0/10 LOCATION: upper chest FINDINGS: A single view of the chest demonstrates the lungs to be symmetrically aerated without evidence of mas s, infiltrate or effusion. The cardiomediastinal contours are unremarkable. Osseous structures are intact. CONCLUSION: 1. No acute findings. Mildly tortuous aorta. Pieter Foreman MD on August 18, 2017 at 21:58 Board Certified Radiologist. This report was verified electronically.
[2017-08-18 22:02] VITALS: BP 134/68; PULSE 73; RESP 18; O2SAT 95
[2017-08-18 22:50] VITALS: BP 150/90; PULSE 76; RESP 16; O2SAT 96
[2017-08-18] MEDS ORDERED: ONDANSETRON HCL 4 MG/2 ML VIAL IVP PRN (23:00)
[2017-08-18] MEDS ORDERED: NALOXONE HCL 0.4 MG/ML AMP IV PUSH PRN (23:00)
[2017-08-18] MEDS ORDERED: LACTULOSE SYRUP 20 GM/30 ML CUP PO PRN (23:00)
[2017-08-18] MEDS ORDERED: SENNOSIDES 8.6 MG TAB PO PRN (23:00)
[2017-08-18] MEDS ORDERED: MAGNESIUM HYDROXIDE SUSP 30 ML CUP PO PRN (23:00)
[2017-08-18] MEDS ORDERED: SODIUM CHLORIDE 0.9% FLUSH 10 ML FLUSH IV FLUSH PRN (23:00)
[2017-08-18] MEDS ORDERED: ENOXAPARIN SODIUM 40 MG/0.4 ML SYRINGE SQ SCH (23:00)
[2017-08-18] MEDS ORDERED: BISACODYL 10 MG SUPP RECTAL PRN (23:00)
[2017-08-18] MEDS ORDERED: ACETAMINOPHEN 325 MG TAB PO PRN (23:00)
[2017-08-18 23:39] VITALS: BP 136/89; TEMP 98
[2017-08-19 04:00] VITALS: BP 152/76; PULSE 60; RESP 20; TEMP 98; O2SAT 95
[2017-08-19 06:41] LABS: AUTOMATED NEUTROPHIL # 3.8 TH/MM3 (1.8-7.7); BASOPHIL % 0.5 % (0.0-2.0); EOSINOPHIL # 0.2 TH/MM3 (0-0.4); EOSINOPHIL % 3.7 % (0.0-4.0); HEMATOCRIT 37.9 % (39.0-51.0); HEMOGLOBIN 12.8 GM/DL (13.0-17.0); LYMPH % 28.6 % (9.0-44.0); LYMPHOCYTE # 1.9 TH/MM3 (1.0-4.8); MEAN CELL VOLUME 95.8 FL (80.0-100.0); MEAN CORPUSCULAR HEMOGLOBIN 32.4 PG (27.0-34.0); MEAN CORPUSCULAR HGB CONC 33.8 % (32.0-36.0); MONOCYTE # 0.8 TH/MM3 (0-0.9); NEUT % 55.2 % (16.0-70.0); PLATELET COUNT 249 TH/MM3 (150-450); RED BLOOD COUNT 3.96 MIL/MM3 (4.50-5.90); RED CELL DISTRIBUTION WIDTH 13.3 % (11.6-17.2); WHITE BLOOD COUNT 6.7 TH/MM3 (4.0-11.0)
[2017-08-19 06:54] LABS: CHLORIDE 101 MEQ/L (98-107); SODIUM (NA) 135 MEQ/L (136-145)
[2017-08-19 06:58] LABS: ALBUMIN 2.9 GM/DL (3.4-5.0); BICARBONATE 31.6 MEQ/L (21.0-32.0); BLOOD UREA NITROGEN 11 MG/DL (7-18); GLUCOSE,RANDOM 95 MG/DL (74-106)
[2017-08-19 06:59] LABS: CALCIUM 8.2 MG/DL (8.5-10.1)
[2017-08-19 07:01] LABS: ALT (GPT) 43 U/L (12-78); AST (GOT) 31 U/L (15-37); CREATININE 0.74 MG/DL (0.60-1.30); GLOMERULAR FILTRATION RATE 110 ML/MIN (>89)
[2017-08-19 07:02] LABS: TOTAL BILIRUBIN ADULT 0.2 MG/DL (0.2-1.0); TOTAL PROTEIN 6.5 GM/DL (6.4-8.2)
[2017-08-19 07:04] LABS: ALKALINE PHOSPHATASE 93 U/L (45-117)
[2017-08-19 08:46] VITALS: BP 143/90; PULSE 55; RESP 14; TEMP 97.9; O2SAT 95
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
[2017-08-19] MEDS ORDERED: NICOTINE 21 MG/24 HR PATCH T-DERMAL SCH (09:00)
[2017-08-19] MEDS ORDERED: NIFEdipine 60 MG SUSTAINED RELEASE TAB PO SCH (09:00)
[2017-08-19] MEDS ORDERED: REMOVE OLD PATCH T-DERMAL SCH (09:00)
[2017-08-19] MEDS ORDERED: CYCLOBENZAPRINE HCL 10 MG TAB PO PRN (09:15)
[2017-08-19] MEDS: SODIUM CHLORIDE 0.9% FLUSH 10 ML FLUSH IV FLUSH SCH ×2 (11:33→21:00)
[2017-08-19] MEDS: DOCUSATE SODIUM 50 MG/SENNA 8.6 MG TAB PO SCH ×2 (11:33→21:00)
--- NOTE | 2017-08-19 11:45 | RADRPT ---
EXAM DATE/TIME: 08/19/2017 08:20 [facility] COMPARISON: No previous studies available for comparison. INDICATIONS : Transischemic attack. Left arm and facial numbness. MEDICAL HISTORY : Hypercholesterolemia. Hypertension. Rheumatoid arthritis. Cardiovascular disease. Liver lesion. SURGICAL HISTORY : Skin grafts. ENCOUNTER: Initial ACUITY: 2 days PAIN SCORE: 0/10 LOCATION: Bilateral neck PEAK SYSTOLIC VELOCITIES (cm/sec): ICA/CCA RATIO: Right: 1.1 Left: 1.5 ICA: Right: 94 Left: 127 CCA: Right: 87 Left: 83 ECA: Right: 183 Left: 189 VERTEBRAL: Right: 62 antegrade Left: 87 antegrade Elevated flow velocities and ICA/CCA ratios have been found to correlate with increased degrees of vessel stenosis, calculated as percentage of diameter relative to a normal segment of distal ICA/CCA FINDINGS: RIGHT CAROTID: No significant stenosis is visualized. However there is calcified and noncalcified plaque in the car otid bulb. The waveforms are within normal limits. LEFT CAROTID: No significant stenosis is visualized. Noncalcified plaque in the mid common carotid artery with foc al area of calcification in the left carotid bulb. The waveforms are within normal limits. VERTEBRAL ARTERIES: Antegrade flow is seen in both vertebral arteries. MISCELLANEOUS: None. CONCLUSION: 1. Calcified and noncalcified plaque in in both carotid systems. Soft plaque identified in the left m id common carotid artery. 2. However, no sonographic or Doppler findings of a hemodynamically significant stenosis. Antegrade f low in both vertebral arteries. Keith Myers MD on August 19, 2017 at 11:39 Board Certified Radiologist. This report was verified electronically.
[2017-08-19 12:32] VITALS: BP 164/103; PULSE 55; RESP 14; TEMP 98.3; O2SAT 97
--- NOTE | 2017-08-19 13:01 | MB ---
cc: HANANE POWELL DATE OF CONSULTATION 08/19/2017 REASON FOR CONSULTATION Atrial fibrillation HISTORY OF PRESENT ILLNESS The patient is a 52-year-old white male with a history of paroxysmal atrial fibrillation which he states he has had "all my life," hypertension, peptic ulcer disease, rheumatoid arthritis who presented to the emergency room with complaints of left facial and left arm numbness, as well as left arm weakness. These symptoms have been ongoing for the past five days. In the past four to five days, he has also he had a constant left inframammary "sharp" chest pain with no associated shortness of breath, nausea or diaphoresis. The chest discomfort has no relationship to exertion. He denies paroxysmal nocturnal dyspnea, lightheadedness, syncope, near-syncope. Chronically, he has mild intermittent pedal edema. He feels as if his last episode of atrial fibrillation was two months ago. During his episodes of atrial fibrillation, he feels fluttering, racing palpitations. The patient also states he has never had an episode of atrial fibrillation lasting more than one minute. PAST MEDICAL HISTORY 1. Hypertension 2. Gastric ulcer disease documented by endoscopy 2008. 3. Hyperlipidemia 4. Rheumatoid arthritis 5. Not well-documented history of atrial fibrillation. MEDICATIONS His cardiac medications at home: Procardia 60 mg daily. ALLERGIES NO KNOWN DRUG ALLERGIES. FAMILY HISTORY There is no significant family history of early myocardial infarction. SOCIAL HISTORY The patient smokes about a pack of cigarettes per day. He drinks occasional alcohol. REVIEW OF SYSTEMS As in the history of present illness, otherwise negative or noncontributory. He also denies headache, visual changes, abdominal pain, melena, dyspepsia, bright red blood per rectum. PHYSICAL EXAMINATION VITAL SIGNS: His blood pressure is 143/90 with a pulse of 55, respirations 14. GENERAL: He is a well-developed, well-nourished white male in no acute distress HEENT: On examination, jugular venous pressure is normal. Carotid pulses are 2+ bilaterally and without bruits. CHEST: Examination of the chest reveals clear lung castaneda. CARDIAC: On cardiac examination, he has a bradycardic regular rhythm without S3-S4 or murmur. ABDOMEN: On abdominal examination, he has a soft, nontender abdomen. Bowel sounds are present. There is no definite hepatosplenomegaly. EXTREMITIES: Examination of extremities reveals no clubbing, cyanosis or edema. EKG shows sinus bradycardia, otherwise normal EKG. LABORATORY DATA Includes WBC 6.7, hemoglobin 12.8, platelets 249, potassium 4.2, BUN 11, creatinine 0.74, troponin less than 0.02. Chest x-ray shows no acute disease. IMPRESSION Possible history of paroxysmal atrial fibrillation in a 52-year-old white male with a history of hypertension, hyperlipidemia, rheumatoid arthritis, peptic ulcer disease now admitted with left facial numbness, left upper extremity weakness and numbness. Looking at available prior records, I see no evidence for atrial fibrillation on EKG's. Monitoring strips here in the hospital have also been reviewed all showing sinus bradycardia with no evidence for atrial arrhythmias. His chest pain for the past four to five days is extremely atypical for myocardial ischemia. Despite constant chest discomfort for the past few days, troponin level is negative for myocardial infarction. EKG is basically normal. RECOMMENDATIONS 1. If the patient is felt to have truly sustained a transient ischemic attack or stroke, recommend warfarin to achieve an INR of 2-2.5. 2. If the patient is felt not to have sustained an acute neurological event, would recommend daily baby aspirin. 3. Would avoid any AV ijm suppressing drugs for treatment of atrial fibrillation given his baseline bradycardia. The patient states he has never had an episode of atrial fibrillation lasting more than a minute. 4. Will follow up as needed. MD WILL Osborn/JENNY /12:31 PM /12:41 PM [facility]OSPITALGiuseppe
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
[2017-08-19] MEDS ORDERED: ASPIRIN 325 MG TAB PO SCH (16:00)
[2017-08-19] MEDS: ALPRAZolam 0.25 MG TAB PO PRN (16:39)
[2017-08-19 17:41] LABS: CHOLESTEROL 150 MG/DL (120-200); TRIGLYCERIDES 119 MG/DL (42-150)
[2017-08-19 18:06] LABS: CHOLESTEROL/ HDL RATIO 3.45 RATIO; HDL CHOLESTEROL 43.4 MG/DL (40.0-60.0); LDL CHOLESTEROL 83 MG/DL (0-99)
[2017-08-19 18:28] VITALS: BP 136/85; PULSE 65; RESP 16; TEMP 97.8; O2SAT 92
--- NOTE | 2017-08-19 18:34 | EKG ---
Date Performed: 08/18/2017 Time Performed: 20:57:33 PTAGE: 52 years EKG: SINUS BRADYCARDIA POSSIBLE LEFT ATRIAL ENLARGEMENT When compared to previous tracing, sinus rate is slower. BORDERLINE ECG PREVIOUS TRACING : 05/18/2017 05.20 DOCTOR: Perry Wong Interpretating Date/Time 08/19/2017 18:30:44
[2017-08-19 20:00] VITALS: BP 153/81; PULSE 54; PULSE 56; RESP 20; TEMP 96.6; O2SAT 93
[2017-08-19 20:07] LABS: HEMOGLOBIN A1C 5.3 % (4.3-6.0)
[2017-08-19] MEDS ORDERED: ATORVASTATIN 40 MG TAB PO SCH (21:00)
[2017-08-19] MEDS ORDERED: HEPARIN SODIUM - SQ 10,000 UNITS/ML VIAL SQ SCH (21:00)
[2017-08-20] VITALS: BP 145/88; PULSE 60; RESP 20; TEMP 96.9; O2SAT 93
[2017-08-20] MEDS: ALPRAZolam 0.25 MG TAB PO PRN (00:23)
[2017-08-20 04:00] VITALS: BP 134/85; PULSE 56; RESP 20; TEMP 96.3; O2SAT 93
[2017-08-20 07:50] VITALS: BP 169/81; PULSE 55; RESP 20; TEMP 97.3; O2SAT 93
[2017-08-20 08:00] VITALS: PULSE 60
[2017-08-20] MEDS ORDERED: ASA325 PO (08:02)
[2017-08-20] MEDS ORDERED: ALPR.25 PO (08:02)
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
== END 2017-08-20 09:56 | disposition home or self-care (01) ==
LOC: PHED 18:48 → PHEDA 22:40 → PH3A 23:35
PROVIDERS: ADMIT Family Medicine; ATTEND Family Medicine
DX: G45.9 Transient cerebral ischemic attack, unspecified (principal); R00.1 Bradycardia, unspecified; I10 Essential (primary) hypertension; I48.0 Paroxysmal atrial fibrillation; E78.00 Pure hypercholesterolemia, unspecified; Q25.46 Tortuous aortic arch; M06.9 Rheumatoid arthritis, unspecified; F17.210 Nicotine dependence, cigarettes, uncomplicated; Z87.11 Personal history of peptic ulcer disease
CPT/HCPCS: 70450; 71045; 80053; 80061; 81001; 82607; 83036; 84443; 84484; 85025; 85610; 85652; 93005; 93880; 96372; 97162; 99285; G0378; G8987; G8988; J1644; J1650

== ENCOUNTER 2018-03-09 08:48 | Inpatient (IN) ==
[2018-03-09] MEDS ORDERED: Pantoprazole Inj 80 MG in Sodium Chlor 0.9% Inj 50 ML IV.SIG ONE (09:30)
--- NOTE | 2018-03-09 09:40 | ED ---
HPI General Chief Complaint: Abdominal Pain Stated Complaint: Blood in stool Source: patient Mode of arrival: ambulatory Limitations: no limitations History of Present Illness MD complaint: abdominal pain Onset (ago): week(s) (1) Pain Consistency: constant Location: epigastric (Diffuse upper abdominal pain) Severity scale (1-10): 5 Quality: stabbing Radiation: none Migration to: no migration Relieving factors: eating Context: other (Use of alcohol and nonsteroidal anti-inflammatory agents) Associated symptoms: nausea, vomiting, diarrhea, hematemesis and hematochezia Treatments prior to arrival: NSAIDs and antacids Related Data Home Medications Medication Instructions Recorded Confirmed methadone 60 mg PO DAILY 03/09/18 03/09/18 Allergies Allergy/AdvReac Type Severity Reaction Status Date / Time No Known Allergies Allergy Verified 03/09/18 09:02 Review of Systems ROS: all other systems reviewed are negative [facility] Medical History Medical History Alcoholism (Acute) History of substance abuse (Acute) Hypertension (Acute) Surgical History Surgical History History of skin graft (Acute) Social History Social History Substance History: Active Abuse Smoking Status: Current every day smoker Tobacco Type: Cigarettes How Often Do You Have a Drink Containing Alcohol: 4 or more times a week Recent Travel in [facility] within the Last 8 Weeks: No Recent Out of Country Travel within the Last 8 Weeks: No Substance Abuse Detail Alcohol: Substance Use Status: Active Route Used Substance Abuse: By Mouth Opiates: Substance Use Status: Sustained Remission Immunization History Tetanus Immunization: >5 Years Hx Influenza Vaccine This Season: No Exam Const General: cooperative, healthy appearing, comfortable, no acute distress, well developed and well groomed Nutritional Appearance: thin Orientation: alert, awake and oriented x3 HENMT Head: normal to inspection, normocephalic and atraumatic Mouth: moist mucous membranes Eyes Conjunctivae: conjunctivae normal Sclera: sclerae normal EOM: EOM intact bilaterally Neck Neck: normal visual inspection and full ROM Chest Chest: normal inspection of the chest Resp Effort & Inspection: normal respiratory effort and able to speak in complete sentences Auscultation: clear to auscultation bilaterally Cardio Rate: tachycardic (HR about 110) Rhythm: regular rhythm GI Inspection: normal to inspection Palpation: soft and tender (mild upper abd tenderness) Rectal Exam: normal sphincter tone and other (maroon stool) Back/Spine/Pelvis Cervical Spine: cervical ROM normal Thoracic/Lumbar Spine: thoraco-lumbar ROM normal Skin General: no rashes or lesions noted and turgor normal Neuro General: alert, awake, oriented x3, moves all extremities and CN's II-XI intact bilaterally Extrem General: normal to inspection and full ROM Psych Appearance: grossly normal Mental Status: mental status grossly normal Speech and Movement: speech and movement normal Mood: congruent mood Affect: normal affect Attitude: cooperative Thought Process: normal Thought Content: normal Judgment: judgment good Procedures Hemaprompt Stool Procedural Steps Taken: specimen placed in appropriate test area and controls appropriately positive and negative Hemaprompt Stool Result: positive Course Consultations Consultation #1: Dr. Rodrigues Time: 11:58 Initial Documented Vital Signs Temperature 98.6 F 03/09/18 08:49 Pulse Rate 111 H 03/09/18 08:49 Respiratory Rate 20 03/09/18 08:49 Blood Pressure 143/79 H 03/09/18 08:49 Pulse Oximetry 100 03/09/18 08:49 Last Documented Vital Signs Temperature 98.6 F 03/09/18 08:49 Pulse Rate 80 03/09/18 11:30 Respiratory Rate 16 03/09/18 11:30 Blood Pressure 152/90 H 03/09/18 11:30 Pulse Oximetry 97 03/09/18 11:30 Critical Care Time Critical Care Time: Yes Total Critical Care Time: 35 Attestation: Time to perform other separately billable procedures was not included in the critical care time. My time did not include minutes spent treating any other patients simultaneously or on activities that did not directly contribute to the patient's treatment. The services I provided to this patient were to treat and/or prevent clinically significant deterioration due to GI bleed with orthostatic hypotension I provided critical care services requiring my management, as noted below: Chart data review, documentation time, medication orders and management, vital sign assessments/reviewing monitor data, ordering and reviewing lab tests, ordering and interpreting/reviewing x-rays and diagnostic studies, care of the patient and discussion of the patient with the admitting physicians Medical Decision Making MDM Narrative Medical decision making narrative: This patient presents with a one-week history of upper abdominal pain and a 1 day history of both hematemesis and hematochezia. He drinks alcohol and uses nonsteroidal anti-inflammatory agents. He will be fluid resuscitated with normal saline. He will be given a Protonix bolus and drip. Routine labs are pending with the addition of a type and screen. CT of the abdomen and pelvis has also been ordered. Orthostatics were reportedly positive. CT is unremarkable. The patient is reluctantly agreeable to an observation admission. Medical Screen Exam Complete: Yes Emergency Medical Condition: Yes Differential Diagnosis Differential Diagnosis: Differential diagnosis includes but is not limited to gastritis, esophageal varices, bleeding peptic ulcer, diverticulosis, colon cancer Lab Data Lab results reviewed: Yes I reviewed the patient's lab results. Result diagrams: 03/09/18 09:30 03/09/18 09:30 Lab Results 03/09/18 03/09/18 03/09/18 Range/Units 09:30 09:30 09:30 CBC w Diff Auto diff final WBC 15.2 H (4.0-11.0) th/mm3 RBC 3.55 L (4.50-5.90) mil/mm3 Hgb 11.6 L (13.0-17.0) gm/dL Hct 33.9 L (39.0-51.0) % MCV 95.5 (80.0-100.0) fL MCH 32.7 (27.0-34.0) pg MCHC 34.3 (32.0-36.0) % RDW 13.6 (11.6-17.2) % Plt Count 346 (150-450) th/mm3 MPV 8.9 (7.0-11.0) fL Neut % (Auto) 67.7 (16.0-70.0) % Lymph % (Auto) 20.2 (9.0-44.0) % [place] % (Auto) 9.1 H (0.0-8.0) % Eos % (Auto) 0.4 (0.0-4.0) % Baso % (Auto) 2.6 H (0.0-2.0) % Neut # (Auto) 10.2 H (1.8-7.7) th/mm3 Lymph # (Auto) 3.1 (1.0-4.8) th/mm3 [place] # (Auto) 1.4 H (0.0-0.9) th/mm3 Eos # (Auto) 0.1 (0.0-0.4) th/mm3 Baso # (Auto) 0.4 H (0.0-0.2) th/mm3 WBC Differential . Differential Comment . PT 11.1 (9.8-11.6) sec INR 1.1 Ratio APTT 24.8 (24.3-30.1) sec Sodium 139 (136-145) meq/L Potassium 3.7 (3.5-5.1) meq/L Chloride 103 (98-107) meq/L Carbon Dioxide 30.3 (21.0-32.0) meq/L Anion Gap 6 (5-15) meq/L BUN 35 H (7-18) mg/dL Creatinine 1.10 (0.60-1.30) mg/dL Estimated GFR 70 L (>89) mL/min Random Glucose 108 H (74-106) mg/dL Calcium 8.6 (8.5-10.1) mg/dL Total Bilirubin 0.2 (0.2-1.0) mg/dL AST 13 L (15-37) U/L ALT 17 (12-78) U/L Alkaline Phosphatase 81 (45-117) U/L Total Protein 6.9 (6.4-8.2) g/dL Albumin 3.2 L (3.4-5.0) g/dL Blood Type Antibody Screen 03/09/18 Range/Units 09:30 CBC w Diff WBC (4.0-11.0) th/mm3 RBC (4.50-5.90) mil/mm3 Hgb (13.0-17.0) gm/dL Hct (39.0-51.0) % MCV (80.0-100.0) fL MCH (27.0-34.0) pg MCHC (32.0-36.0) % RDW (11.6-17.2) % Plt Count (150-450) th/mm3 MPV (7.0-11.0) fL Neut % (Auto) (16.0-70.0) % Lymph % (Auto) (9.0-44.0) % [place] % (Auto) (0.0-8.0) % Eos % (Auto) (0.0-4.0) % Baso % (Auto) (0.0-2.0) % Neut # (Auto) (1.8-7.7) th/mm3 Lymph # (Auto) (1.0-4.8) th/mm3 [place] # (Auto) (0.0-0.9) th/mm3 Eos # (Auto) (0.0-0.4) th/mm3 Baso # (Auto) (0.0-0.2) th/mm3 WBC Differential Differential Comment PT (9.8-11.6) sec INR Ratio APTT (24.3-30.1) sec Sodium (136-145) meq/L Potassium (3.5-5.1) meq/L Chloride (98-107) meq/L Carbon Dioxide (21.0-32.0) meq/L Anion Gap (5-15) meq/L BUN (7-18) mg/dL Creatinine (0.60-1.30) mg/dL Estimated GFR (>89) mL/min Random Glucose (74-106) mg/dL Calcium (8.5-10.1) mg/dL Total Bilirubin (0.2-1.0) mg/dL AST (15-37) U/L ALT (12-78) U/L Alkaline Phosphatase (45-117) U/L Total Protein (6.4-8.2) g/dL Albumin (3.4-5.0) g/dL Blood Type A Positive Antibody Screen Negative Imaging Data Radiologist's impression: Abdomen/Pelvis CT 03/09/18 09:30 CONCLUSION: 1. Atherosclerosis. 2. Renal cyst. 3. No acute findings. Discharge Plan Discharge Disposition Patient Disposition: 30 Still Patient Discharge Details Diagnosis: Acute GI bleeding Physicians Team ED Provider: Iva Damon Primary Care Provider: Israel Niño Rxs /Orders / Referrals /Forms Prescriptions: No Action methadone 5 mg Tablet 60 mg PO DAILY RF: 0 Status ED Status: Pending Admission
[2018-03-09 09:44] LABS: Baso # (Auto) 0.4 th/mm3 (0.0-0.2); Baso % (Auto) 2.6 % (0.0-2.0); Eos # (Auto) 0.1 th/mm3 (0.0-0.4); Eos % (Auto) 0.4 % (0.0-4.0); Hematocrit 33.9 % (39.0-51.0); Hemoglobin 11.6 gm/dL (13.0-17.0); Lymph # (Auto) 3.1 th/mm3 (1.0-4.8); Lymph % (Auto) 20.2 % (9.0-44.0); Mean Corpuscular HGB Conc 34.3 % (32.0-36.0); Mean Corpuscular Hemoglobin 32.7 pg (27.0-34.0); Mean Corpuscular Volume 95.5 fL (80.0-100.0); Mean Platelet Volume 8.9 fL (7.0-11.0); Mono # (Auto) 1.4 th/mm3 (0.0-0.9); Mono % (Auto) 9.1 % (0.0-8.0); Neut # (Auto) 10.2 th/mm3 (1.8-7.7); Neut % (Auto) 67.7 % (16.0-70.0); Platelet Count 346 th/mm3 (150-450); Red Blood Count 3.55 mil/mm3 (4.50-5.90); Red Cell Distribution Width 13.6 % (11.6-17.2); White Blood Count 15.2 th/mm3 (4.0-11.0)
[2018-03-09 09:54] LABS: Chloride 103 meq/L (98-107); Potassium 3.7 meq/L (3.5-5.1); Sodium 139 meq/L (136-145)
[2018-03-09] MEDS: Sod Chloride 0.9% Inj 1,000 ML IV.SIG SCH ×2 (09:55→11:26)
[2018-03-09 09:57] LABS: Calcium 8.6 mg/dL (8.5-10.1)
[2018-03-09 09:58] LABS: Albumin 3.2 g/dL (3.4-5.0); Anion Gap 6 meq/L (5-15); Carbon Dioxide 30.3 meq/L (21.0-32.0); Glucose,Random 108 mg/dL (74-106)
[2018-03-09 09:59] LABS: Activated Partial Thrombo Time 24.8 sec (24.3-30.1); Blood Urea Nitrogen 35 mg/dL (7-18); INR 1.1 Ratio; Prothrombin Time 11.1 sec (9.8-11.6)
[2018-03-09] MEDS ORDERED: Pantoprazole Inj 80 MG in Sodium Chlor 0.9% Inj 100 ML IV.CONT SCH (10:00)
[2018-03-09 10:01] LABS: Alanine Aminotransferase 17 U/L (12-78); Aspartate Aminotransferase 13 U/L (15-37); Glomerular Filtration Rate 70 mL/min (>89)
[2018-03-09 10:03] LABS: Total Protein 6.9 g/dL (6.4-8.2)
[2018-03-09 10:04] LABS: Alkaline Phosphatase 81 U/L (45-117)
--- NOTE | 2018-03-09 11:22 | CT ---
EXAM DATE: 03/09/2018 11:18 AM EDT AGE/SEX: 52 years / Male INDICATIONS: Upper abdomen pain vomiting blood and blood in stool CLINICAL DATA: This is the patient's initial encounter. Patient reports that signs and symptoms have been present for 1 week and indicates a pain score of 4/10. MEDICAL/SURGICAL HISTORY: Hypertension. . Skin grafts orthopedic ORAL CONTRAST: No oral contrast ingested. RADIATION DOSE: 5.78 CTDI (mGy) COMPARISON: [facility], CT ABDOMEN & PELVIS W CONTRAST, 05/18/2017. . TECHNIQUE: Multiple contiguous axial images were obtained through the abdomen and pelvis following b olus infusion of 70 ml Omnipaque 350 (iohexol) nonionic water-soluble contrast as a single exam dos e. No oral contrast ingested. Using automated exposure control and adjustment of the mA and/or kV ac cording to patient size, radiation dose was kept as low as reasonably achievable to obtain optimal di agnostic quality images. DICOM format image data is available electronically for review and comparis on. FINDINGS: Liver, gallbladder, right kidney, adrenals, spleen unremarkable. There is a tiny cyst at the midpole the left kidney anteriorly which is unchanged. Retroaortic left renal vein. Atherosclerotic calcifica tion of the aorta and iliac vessels are noted. There is no aneurysm. The pancreas, urinary bladder an d prostate are unremarkable. No evidence of bowel obstruction, free fluid or free air. Stomach is nor mal. There is no adenopathy. Review of bone windows demonstrate no worrisome osseous lesions. Lung ba ses are clear. CONCLUSION: 1. Atherosclerosis. 2. Renal cyst. 3. No acute findings. Electronically signed by: Kurt Muro MD 03/09/2018 11:20 AM EDT
[2018-03-09] MEDS ORDERED: Acetaminophen 325 MG Tablet PO PRN (11:53)
[2018-03-09] MEDS ORDERED: Bisacodyl 10 MG Supp RECTAL PRN (11:53)
[2018-03-09] MEDS ORDERED: Haloperidol Inj 5 MG/ML Ampul IV.PUSH PRN (14:28)
[2018-03-09] MEDS ORDERED: LORazepam 1 MG Tablet PO PRN (14:28)
--- NOTE | 2018-03-09 14:38 | P.HP ---
History of Present Illness Service: Hospitalist Primary Care Physician: Israel Niño DO Chief Complaint: Bloody vomiting and diarrhea History of Present Illness: Mr. Dao is a pleasant 52-year-old male with a history of hypertension, alcoholism who presents to the emergency department due to 1 day duration of hematemesis as well as bloody diarrhea. He has been having abdominal pain for about a week. However this morning he started having nausea and vomiting as well as diarrhea. He denies any chest pain, shortness of breath , fever but reports some chills. He also often gets hot and sweaty. He has lost about 15 pounds in the last 4-5 months. Denies any dysuria, hematuria. Past medical history: Alcoholism, hypertension Past surgical history: Skin grafting surgery. Social history: Smokes 1 pack a day, drinks about 4 beers a day. Family history: Father with diabetes mellitus. - Diagnosis (1) Acute GI bleeding Review of Systems All other systems reviewed negative except as stated in HPI [facility] - History History Provided By: Patient - Medical History Medical History: Medical History (Last Reviewed 03/09/18 @ 09:37 by Iva Damon) Alcoholism History of substance abuse Hypertension - Surgical History Surgical History: Surgical History (Last Reviewed 03/09/18 @ 09:37 by Iva Damon) History of skin graft - Tobacco History Tobacco Use In Past 30 Days: Yes Smoking Status: Current every day smoker Tobacco Type: Cigarettes - Alcohol History How Often Do You Have a Drink Containing Alcohol: 4 or more times a week - Substance Use History Substance History: Active Abuse - Substance Use Type Alcohol Status: Active Route Used: By Mouth Opiates Status: Sustained Remission - Travel History Recent Travel in the [place] Within the Last 8 Weeks: No Recent Travel Out of the Country Within the Last 8 Weeks: No - Immunization History Tetanus Immunization: >5 Years Hx Influenza Vaccine This Season: No Medications and Allergies Active Medications: Active Medications Acetaminophen (Tylenol) 650 mg PO Q4H PRN PRN Reason: Fever, headache, pain 1-4 Al Hydroxide/Mg Hydroxide (Milk Of Magnesia Liq) 30 ml PO Q12H PRN PRN Reason: Mild Constipation Bisacodyl (Dulcolax Supp) 10 mg RECTAL DAILY PRN PRN Reason: SEVERE CONSITIPATION Sodium Chloride (Ns Inj) 1,000 mls @ 0 mls/hr IV.SIG BOLUS DUNIA Stop: 03/10/18 09:31 Last Admin: 03/09/18 11:26 Dose: 999 mls/hr Pantoprazole Sodium 80 mg/ (Sodium Chloride) 100 mls @ 10 mls/hr IV.CONT CONT DUNIA Last Admin: 03/09/18 10:03 Dose: 10 mls/hr Sodium Chloride (Ns Inj) 1,000 mls @ 100 mls/hr IV.CONT .Q10H DUNIA Ceftriaxone Sodium 1,000 mg/ (Sodium Chloride) 100 mls @ 200 mls/hr IV.SIG Q24H DUNIA Lactulose (Lactulose Liq) 30 ml PO DAILY PRN PRN Reason: SEVERE CONSITIPATION Ondansetron HCl (Zofran Inj) 4 mg IV.PUSH Q6H PRN PRN Reason: NAUSEA OR VOMITING Sennosides (Senokot) 17.2 mg PO Q12H PRN PRN Reason: Moderate Constipation Sodium Chloride (Ns Flush) 2 ml IV.FLUSH PRN PRN PRN Reason: FLUSH AFTER USING IV ACCESS Allergies Allergy/AdvReac Type Severity Reaction Status Date / Time No Known Allergies Allergy Verified 03/09/18 09:02 Home Medications Medication Instructions Recorded Confirmed Type methadone 60 mg PO DAILY 03/09/18 03/09/18 History Exam Vital signs: Vital Signs 03/09/18 08:49 03/09/18 09:50 03/09/18 11:30 Temperature 98.6 F Pulse Rate 111 H 100 H 80 Respiratory Rate 20 16 Blood Pressure 143/79 H 152/90 H Pulse Oximetry 100 96 97 03/09/18 12:01 Temperature 98.6 F Pulse Rate 72 Respiratory Rate 18 Blood Pressure 148/84 H Pulse Oximetry 97 Intake & Output 03/08/18 03/09/18 03/09/18 18:59 06:59 18:59 Intake Total 1050 / 1050 Balance 1050 / 1050 Weight 64.9 kg Intake: IV 1050 / 1050 Protonix Inj 80 MG In NS Inj 50 50 / 50 ML @ 600 mls/hr IV.SIG BOLUS ONE Rx#:[id number] NS Inj 1,000 ML @ Wide Open IV. 1000 / 1000 SIG BOLUS DUNIA Rx#:[id number] Narrative: GENERAL: This is a well-nourished, well-developed patient, in no apparent distress. SKIN: No rashes, ecchymoses or lesions. Warm and dry. HEAD: Atraumatic. Normocephalic. No temporal or scalp tenderness. EYES: Pupils equal round and reactive. No injection or drainage. ENT: Nose without bleeding, purulent drainage or septal hematoma. Airway patent. NECK: Trachea midline. No lymphadenopathy. Supple, nontender, no meningeal signs. CARDIOVASCULAR: Regular rate and rhythm without murmurs, gallops, or rubs. No JVD. RESPIRATORY: Clear to auscultation. Breath sounds equal bilaterally. No wheezes , rales, or rhonchi. GASTROINTESTINAL: Abdomen soft, mildly tender to palpation, nondistended. No guarding. MUSCULOSKELETAL: Extremities without clubbing, cyanosis, or edema. NEUROLOGICAL: Awake and alert. Cranial nerves II through XII intact. No focal neurological deficits. Normal speech. Results - Labs CBC & Chem 7: 03/09/18 09:30 03/09/18 09:30 Labs: Laboratory Results - last 24 hr 03/09/18 03/09/18 03/09/18 09:30 09:30 09:30 CBC w Diff Auto diff final WBC 15.2 H RBC 3.55 L Hgb 11.6 L Hct 33.9 L MCV 95.5 MCH 32.7 MCHC 34.3 RDW 13.6 Plt Count 346 MPV 8.9 Neut % (Auto) 67.7 Lymph % (Auto) 20.2 [place] % (Auto) 9.1 H Eos % (Auto) 0.4 Baso % (Auto) 2.6 H Neut # (Auto) 10.2 H Lymph # (Auto) 3.1 [place] # (Auto) 1.4 H Eos # (Auto) 0.1 Baso # (Auto) 0.4 H WBC Differential . Differential Comment . PT 11.1 INR 1.1 APTT 24.8 Sodium 139 Potassium 3.7 Chloride 103 Carbon Dioxide 30.3 Anion Gap 6 BUN 35 H Creatinine 1.10 Estimated GFR 70 L Random Glucose 108 H Calcium 8.6 Total Bilirubin 0.2 AST 13 L ALT 17 Alkaline Phosphatase 81 Total Protein 6.9 Albumin 3.2 L Blood Type Antibody Screen 03/09/18 09:30 CBC w Diff WBC RBC Hgb Hct MCV MCH MCHC RDW Plt Count MPV Neut % (Auto) Lymph % (Auto) [place] % (Auto) Eos % (Auto) Baso % (Auto) Neut # (Auto) Lymph # (Auto) [place] # (Auto) Eos # (Auto) Baso # (Auto) WBC Differential Differential Comment PT INR APTT Sodium Potassium Chloride Carbon Dioxide Anion Gap BUN Creatinine Estimated GFR Random Glucose Calcium Total Bilirubin AST ALT Alkaline Phosphatase Total Protein Albumin Blood Type A Positive Antibody Screen Negative - Imaging Impressions Abdomen/Pelvis CT 03/09/18 09:30 CONCLUSION: 1. Atherosclerosis. 2. Renal cyst. 3. No acute findings. Caprini VTE Risk Assessment Caprini VTE Risk Assessment: No/Low Risk (score <= 1) Caprini Risk Assessment Model: Point Value = 1 Point Value = 2 Point Value = 3 Point Value = 5 Age 41-60 Minor surgery BMI > 25 kg/m2 Swollen legs Varicose veins or History of unexplained or recurrent spontaneous Oral contraceptives or hormone replacement Sepsis (< 1 month) Serious lung disease, including pneumonia (< 1 month) Abnormal pulmonary function Acute myocardial infarction Congestive heart failure (< 1 month) History of inflammatory bowel disease Medical patient at bed rest Age 61-74 Arthroscopic surgery Major open surgery (> 45 min) Laparoscopic surgery (> 45 min) Malignancy Confined to bed (> 72 hours) Immobilizing plaster cast Central venous access Age >= 75 History of VTE Family history of VTE Factor V Leiden Prothrombin [id number] Lupus anticoagulant Anticardiolipin antibodies Elevated serum homocysteine Heparin-induced thrombocytopenia Other congenital or acquired thrombophilia Stroke (< 1 month) Elective arthroplasty Hip, pelvis, or leg fracture Acute spinal cord injury (< 1 month) Prophylaxis Regimen: Total Risk Factor Score Risk Level Prophylaxis Regimen 0-1 Low Early ambulation 2 Moderate Order ONE of the following: *Sequential Compression Device (SCD) *Heparin 5000 units SQ BID 3-4 Higher Order ONE of the following medications: *Heparin 5000 units SQ TID *Enoxaparin/Lovenox 40 mg SQ daily (WT < 150 kg, CrCl > 30 mL/min) *Enoxaparin/Lovenox 30 mg SQ daily (WT < 150 kg, CrCl > 10-29 mL/min) *Enoxaparin/Lovenox 30 mg SQ BID (WT < 150 kg, CrCl > 30 mL/min) AND/OR *Sequential Compression Device (SCD) 5 or more Highest Order ONE of the following medications: *Heparin 5000 units SQ TID (Preferred with Epidurals) *Enoxaparin/Lovenox 40 mg SQ daily (WT < 150 kg, CrCl > 30 mL/min) *Enoxaparin/Lovenox 30 mg SQ daily (WT < 150 kg, CrCl > 10-29 mL/min) *Enoxaparin/Lovenox 30 mg SQ BID (WT < 150 kg, CrCl > 30 mL/min) AND *Sequential Compression Device (SCD) Assessment and Plan - Assessment (1) Acute GI bleeding Code(s): K92.2 - Gastrointestinal hemorrhage, unspecified Status: Acute - Plan Mr. Dao is a pleasant 52-year-old male with a history of hypertension, alcoholism who presents to the emergency department due to upper and lower GI bleed. His symptoms started today with upper GI bleed he also reports diarrhea with bright red blood. No fever or chills. Acute GI bleeding -Patient underwent colonoscopy in June 2016 which shows normal colon. 5 year follow-up colonoscopy was suggested. -Continue Protonix drip. -Continue normal saline at 100 cc/h. Start ceftriaxone 1 g daily. -Discussed with GI attending who will evaluate patient later today. Hypertension - Currently mildly hypertensive 148/84. If needed, we will consider BP meds Alcoholism - [facility] protocol. Full code. SCDs, Ambulation.
[2018-03-09] MEDS: Sod Chloride 0.9% Inj 1,000 ML IV.CONT SCH (15:36)
[2018-03-10] MEDS: Sod Chloride 0.9% Inj 1,000 ML IV.CONT SCH ×2 (00:08→08:58)
[2018-03-10 05:37] LABS: Baso # (Auto) 0.1 th/mm3 (0.0-0.2); Baso % (Auto) 0.8 % (0.0-2.0); Eos # (Auto) 0.2 th/mm3 (0.0-0.4); Eos % (Auto) 3.7 % (0.0-4.0); Hematocrit 22.6 % (39.0-51.0); Hemoglobin 7.6 gm/dL (13.0-17.0); Lymph # (Auto) 2.1 th/mm3 (1.0-4.8); Lymph % (Auto) 32.3 % (9.0-44.0); Mean Corpuscular HGB Conc 33.7 % (32.0-36.0); Mean Corpuscular Hemoglobin 32.4 pg (27.0-34.0); Mean Corpuscular Volume 96.1 fL (80.0-100.0); Mean Platelet Volume 8.7 fL (7.0-11.0); Mono # (Auto) 0.5 th/mm3 (0.0-0.9); Mono % (Auto) 7.7 % (0.0-8.0); Neut # (Auto) 3.7 th/mm3 (1.8-7.7); Neut % (Auto) 55.5 % (16.0-70.0); Platelet Count 223 th/mm3 (150-450); Red Blood Count 2.35 mil/mm3 (4.50-5.90); Red Cell Distribution Width 13.7 % (11.6-17.2); White Blood Count 6.6 th/mm3 (4.0-11.0)
--- NOTE | 2018-03-10 09:41 | P.PN ---
Subjective Interval history: Follow up for GI bleed. No further episodes of N/V. Doing well. Waiting for EGD Today. Physical Exam Vital signs: Vital Signs 03/09/18 09:50 03/09/18 11:30 03/09/18 12:01 Temperature 98.6 F Pulse Rate 100 H 80 72 Respiratory Rate 16 18 Blood Pressure 152/90 H 148/84 H Pulse Oximetry 96 97 97 03/09/18 16:00 03/09/18 20:00 03/10/18 00:00 Temperature 97.6 F 97.2 F L 97.1 F L Pulse Rate 68 66 68 Respiratory Rate 18 18 18 Blood Pressure 159/70 H 106/61 126/76 Pulse Oximetry 98 97 96 03/10/18 07:39 03/10/18 08:00 Temperature 97.4 F L Pulse Rate 66 Respiratory Rate 16 Blood Pressure 124/76 Pulse Oximetry 98 97 Intake & Output 03/09/18 03/10/18 03/10/18 18:59 06:59 18:59 Intake Total 2630 / 2630 1000 / 1000 1100 / 1100 Balance 2630 / 2630 1000 / 1000 1100 / 1100 Weight 64.9 kg 64.9 kg Intake: IV 2150 / 2150 1000 / 1000 1100 / 1100 Protonix Inj 80 MG In NS Inj 0 / 0 100 / 100 100 ML @ 10 mls/hr IV.CONT CONT DUNIA Rx#:[id number] NS Inj 1,000 ML @ 100 mls/hr IV 0 / 0 1000 / 1000 1000 / 1000 .CONT .Q10H DUNIA Rx#:[id number] Protonix Inj 80 MG In NS Inj 50 50 / 50 ML @ 600 mls/hr IV.SIG BOLUS ONE Rx#:[id number] NS Inj 1,000 ML @ Wide Open IV. 1999 SIG BOLUS DUNIA Rx#:[id number] Rocephin Inj 1,000 MG In NS Inj 100 / 100 100 ML @ 200 mls/hr IV.SIG Q24H DUNIA Rx#:[id number] Oral 480 / 480 Other: # Voids 2 3 # Bowel Movements 0 Narrative: GENERAL: AOX3, NAD. SKIN: Warm and dry. HEAD: Normocephalic. EYES: No scleral icterus. No injection or drainage. NECK: Supple, trachea midline. No JVD or lymphadenopathy. CARDIOVASCULAR: Regular rate and rhythm without murmurs, gallops, or rubs. RESPIRATORY: Breath sounds equal bilaterally. No accessory muscle use. GASTROINTESTINAL: Abdomen soft, non-tender, nondistended. MUSCULOSKELETAL: No cyanosis, or edema. BACK: Nontender without obvious deformity. No CVA tenderness. Results - Labs CBC & Chem 7: 03/10/18 05:30 03/09/18 09:30 Laboratory Results - last 24 hr 03/09/18 03/09/18 03/09/18 09:30 09:30 09:30 CBC w Diff Auto diff final WBC 15.2 H RBC 3.55 L Hgb 11.6 L Hct 33.9 L MCV 95.5 MCH 32.7 MCHC 34.3 RDW 13.6 Plt Count 346 MPV 8.9 Neut % (Auto) 67.7 Lymph % (Auto) 20.2 [place] % (Auto) 9.1 H Eos % (Auto) 0.4 Baso % (Auto) 2.6 H Neut # (Auto) 10.2 H Lymph # (Auto) 3.1 [place] # (Auto) 1.4 H Eos # (Auto) 0.1 Baso # (Auto) 0.4 H WBC Differential . Differential Comment . PT 11.1 INR 1.1 APTT 24.8 Sodium 139 Potassium 3.7 Chloride 103 Carbon Dioxide 30.3 Anion Gap 6 BUN 35 H Creatinine 1.10 Estimated GFR 70 L Random Glucose 108 H Calcium 8.6 Total Bilirubin 0.2 AST 13 L ALT 17 Alkaline Phosphatase 81 Total Protein 6.9 Albumin 3.2 L Blood Type Antibody Screen 03/09/18 03/10/18 09:30 05:30 CBC w Diff Auto diff final WBC 6.6 D RBC 2.35 L Hgb 7.6 L D Hct 22.6 L MCV 96.1 MCH 32.4 MCHC 33.7 RDW 13.7 Plt Count 223 D MPV 8.7 Neut % (Auto) 55.5 Lymph % (Auto) 32.3 [place] % (Auto) 7.7 Eos % (Auto) 3.7 Baso % (Auto) 0.8 Neut # (Auto) 3.7 Lymph # (Auto) 2.1 [place] # (Auto) 0.5 Eos # (Auto) 0.2 Baso # (Auto) 0.1 WBC Differential . Differential Comment . PT INR APTT Sodium Potassium Chloride Carbon Dioxide Anion Gap BUN Creatinine Estimated GFR Random Glucose Calcium Total Bilirubin AST ALT Alkaline Phosphatase Total Protein Albumin Blood Type A Positive Antibody Screen Negative - Imaging Impressions Abdomen/Pelvis CT 03/09/18 09:30 CONCLUSION: 1. Atherosclerosis. 2. Renal cyst. 3. No acute findings. Assessment and Plan - Assessment (1) Acute GI bleeding Code(s): K92.2 - Gastrointestinal hemorrhage, unspecified Status: Acute - Plan Mr. Dao is a pleasant 52-year-old male with a history of hypertension, alcoholism who presents to the emergency department due to upper and lower GI bleed. His symptoms started today with upper GI bleed he also reports diarrhea with bright red blood. No fever or chills. Acute GI bleeding -Patient underwent colonoscopy in June 2016 which shows normal colon. 5 year follow-up colonoscopy was suggested. -Continue Protonix 40mg IV Q12hrs. -Continue normal saline at 100 cc/h. Continue ceftriaxone 1 g daily. -Likely EGD today. Hypertension - Currently mildly hypertensive 148/77. If needed, we will consider BP meds Alcoholism - [facility] protocol. Full code. SCDs, Ambulation.
[2018-03-10] MEDS ORDERED: Pantoprazole Inj 40 MG Vial IV.PUSH ONE (12:00)
--- NOTE | 2018-03-10 16:34 | P.PCN ---
Procedure: THANK YOU FOR THE REFERRAL Indication; anemia, hematemesis, vomiting Procedure Performed; upper endoscopy [ ] After informing the patient about procedure and possible complications consent was signed. history and physical were updated. Patient was taken to the procedure room and placed in position. Time out was completed. Adequate sedation was performed by anesthesia provider. Upper Endoscopy, the scope was placed in the mouth advanced under video guide to the second portion of the duodenum, then the scope was withdrawal to the stomach and retro-flexion was performed, the scope was withdrawal to the esophagus then out of the mouth without any immediate complication Findings; Esophagus: Normal Stomach large gastric ulcer in the antrum very deep, no active bleeding at this time, most likely this is the reason for the hematemesis, biopsy was done from that area and from the antrum to rule out H. pylori Duodenum normal Recommendations; 1- Supportive care 2- ok to transfer to recovery area then discharge per protocol 3-no ETOH and no NSAIDs 4-clear liquid diet advance as tolerated if hemoglobin stable 5- EGD in 2 month 6-protnix 40 mg po QD
--- NOTE | 2018-03-10 17:41 | MB ---
cc: Rea Nix MD DATE: 03/10/2018 REFERRING PHYSICIAN: Dr. Rodrigues. REASON FOR REFERRAL: Hematemesis, nausea, vomiting and anemia. Thank you for the consultation. A 52-year-old male who has significant history of alcoholism and significant amount of alcohol on a daily basis, came with significant hematemesis. He said that he vomited multiple times and large amount of bright red blood and came to the hospital with that. The patient also has a loose stool and diarrhea. The patient takes significant amount of NSAIDs on a daily basis and he said that he had lost about 15 pounds in the last 4-5 months. He had severe abdominal pain in the right upper quadrant and he said he was treating it with NSAIDs. He denies any other problem at this point. Occasionally, he gets hot and sweaty. PAST MEDICAL HISTORY: Significant for: Hypertension, alcoholism. PAST SURGICAL HISTORY: Skin grafting surgery. SOCIAL HISTORY: He is a smoker and drinks on a daily basis. FAMILY HISTORY: Significant for diabetes. REVIEW OF SYSTEMS: All 12-point negative except for HPI. MEDICATIONS: Reviewed in the chart including NSAIDs. ALLERGIES: NO KNOWN DRUG ALLERGIES. PHYSICAL EXAMINATION: GENERAL: Alert, oriented, in no acute distress at this time. VITAL SIGNS: Stable. HEENT: Pupils are round and reactive to light. NECK: Supple. CHEST: Clear to auscultation and percussion. CARDIAC: Regular rate and rhythm. No murmur or gallops. ABDOMEN: Soft, mild tenderness in the right upper quadrant. Positive bowel sounds. No hepatosplenomegaly. EXTREMITIES: No edema, clubbing or cyanosis. NEUROLOGIC: Intact. No focal abnormalities. Psychologically appropriate. LABORATORY DATA: White count 6.6, down from 15.2 yesterday, hemoglobin 7.6, down from 11.6, platelet 223. INR 1.1, total bilirubin 0.2, AST 13, ALT 17, albumin 3.2. CT of the abdomen unremarkable for free air and the patient has atherosclerosis, renal cyst, no acute finding. ASSESSMENT AND PLAN: A 52-year-old male who has significant nausea, vomiting, and hematemesis, a drop of his hemoglobin. The patient on NSAIDs and significant alcohol abuse. Most likely, the patient has peptic ulcer disease or severe esophagitis. Other etiology could be varices, even though the CT scan does not show cirrhosis and his lab is not consistent with cirrhosis, but that is always a possibility, I plan to do upper endoscopy today, I will monitor hemoglobin and we will see if the patient will need to have any blood transfusion if the hemoglobin is less than 7. The patient understands and agreeable to the procedure. Rea Nix MD AH/ct , 04:28 PM , 04:37 PM
[2018-03-10] MEDS: Pantoprazole Inj 40 MG Vial IV.PUSH SCH (21:34)
[2018-03-10 21:40] VITALS: RESP 18
[2018-03-11 01:40] VITALS: BP 127/73; PULSE 69; TEMP 96.1; O2SAT 96
[2018-03-11] MEDS: Sod Chloride 0.9% Inj 1,000 ML IV.CONT SCH ×2 (03:33→05:27)
[2018-03-11 06:29] LABS: Hematocrit 23.2 % (39.0-51.0); Hemoglobin 7.9 gm/dL (13.0-17.0); Mean Corpuscular Hemoglobin 32.8 pg (27.0-34.0); Mean Corpuscular Volume 96.5 fL (80.0-100.0); Mean Platelet Volume 9.1 fL (7.0-11.0); Platelet Count 256 th/mm3 (150-450); Red Blood Count 2.41 mil/mm3 (4.50-5.90); Red Cell Distribution Width 13.4 % (11.6-17.2)
[2018-03-11] MEDS: Pantoprazole Inj 40 MG Vial IV.PUSH SCH (08:08)
--- NOTE | 2018-03-11 08:33 | P.DS ---
Date of admission: 03/09/18 11:53 Primary care physician: Israel Niño DO Brief History from admission: Mr. Dao is a pleasant 52-year-old male with a history of hypertension, alcoholism who presents to the emergency department due to 1 day duration of hematemesis as well as bloody diarrhea. He has been having abdominal pain for about a week. However this morning he started having nausea and vomiting as well as diarrhea. He denies any chest pain, shortness of breath , fever but reports some chills. He also often gets hot and sweaty. He has lost about 15 pounds in the last 4-5 months. Denies any dysuria, hematuria. Past medical history: Alcoholism, hypertension Past surgical history: Skin grafting surgery. Social history: Smokes 1 pack a day, drinks about 4 beers a day. Family history: Father with diabetes mellitus. DS: Diagnosis - Discharge Diagnosis (1) Acute GI bleeding Status: Acute DS: Medications - Discharge Medications Prescriptions: ciprofloxacin HCl 500 mg PO Q12H #10 tab pantoprazole 40 mg PO DAILY #30 tab sucralfate [Carafate] 1 g PO Q6H #60 tab DS: Summary Hospital Course: Mr. Dao is a pleasant 52-year-old male with a history of hypertension, alcoholism who presents to the emergency department due to upper and lower GI bleed. His symptoms started today with upper GI bleed he also reports diarrhea with bright red blood. No fever or chills. Patient was a started on Protonix drip as well as IV fluid. Gastroenterology was consulted and performed EGD on 03/10/2018. EGD shows a large gastric ulcer in the antrum very deep, no active bleeding at this time, most likely this is the reason for the hematemesis. Biopsy was taken to rule out H. pylori. Patient was advised to abstain from alcohol and NSAIDs. EGD in 2 months. Protonix was recommended. Patient remained hemodynamically stable. His hemoglobin improved from 7.6-7.9. Patient was able to tolerate oral food as well. He was subsequently discharged home with Carafate, Protonix. Again he was advised to avoid alcohol as well as NSAIDs. - Time Spent with Patient Total time spent providing and/or coordinating discharge services: Less than 30 minutes - Quality: VTE Deep Vein Thrombosis/Pulmonary Embolism Present on Admission: No Exam Vital signs: Vital Signs 03/10/18 12:00 03/10/18 15:15 03/10/18 16:30 Temperature 97.7 F 98.6 F 98.4 F Pulse Rate 69 71 76 Respiratory Rate 16 16 16 Blood Pressure 148/77 H 163/93 H 142/87 H Pulse Oximetry 97 100 100 03/10/18 16:40 03/10/18 16:55 03/10/18 20:00 Temperature 98.4 F 97.0 F L Pulse Rate 71 65 73 Respiratory Rate 16 16 18 Blood Pressure 149/83 H 140/83 131/72 Pulse Oximetry 98 98 98 03/11/18 00:00 Temperature 96.1 F L Pulse Rate 69 Respiratory Rate 18 Blood Pressure 127/73 Pulse Oximetry 96 Intake & Output 03/10/18 03/11/18 03/11/18 18:59 06:59 18:59 Intake Total 2400 / 2400 3000 / 3000 Output Total 450 / 450 Balance 2400 / 2400 2550 / 2550 Weight 64.9 kg Intake: IV 1200 / 1200 2000 / 1999 Protonix Inj 80 MG In NS Inj 100 / 100 100 ML @ 10 mls/hr IV.CONT CONT DUNIA Rx#:[id number] NS Inj 1,000 ML @ 100 mls/hr IV 1000 / 1000 2000 / 2000 .CONT .Q10H DUNIA Rx#:[id number] Rocephin Inj 1,000 MG In NS Inj 100 / 100 100 ML @ 200 mls/hr IV.SIG Q24H DUNIA Rx#:[id number] Oral 1200 / 1200 1000 / 1000 Output: Urine 450 / 450 Other: # Voids 3 # Bowel Movements 0 Results Procedures completed during hospitalization: EGD Esophagus: Normal Stomach large gastric ulcer in the antrum very deep, no active bleeding at this time, most likely this is the reason for the hematemesis, biopsy was done from that area and from the antrum to rule out H. pylori Duodenum normal Labs on day of discharge: Labs from last 24 hours 03/11/18 05:35 WBC 6.0 RBC 2.41 L Hgb 7.9 L Hct 23.2 L MCV 96.5 MCH 32.8 MCHC 34.0 RDW 13.4 Plt Count 256 MPV 9.1 - Impressions ITS Impressions Abdomen/Pelvis CT 03/09/18 09:30 CONCLUSION: 1. Atherosclerosis. 2. Renal cyst. 3. No acute findings. Discharge Plan - Discharge Disposition Patient Disposition: 01 Discharge Home - Discharge Condition Condition: Good - Discharge Order Discharge Orders: Discharge Order (Routine); Ordered 03/11/18 Ordered By: Manny Rodrigues - Discharge Details Anticipated Discharge Date: 03/11/18 - Physicians Team Primary Care Provider: Israel Niño Attending Provider: Manny Rodrigues Other Providers: Nay Mays MD
== END 2018-03-11 09:47 | disposition home or self-care (01) ==
LOC: PHED 08:48 → PHEDA 08:48 → PH3 12:44 → UNDODISOB 03-11 09:47
PROVIDERS: ADMIT Hospitalist; ATTEND Hospitalist